=== PATIENT | male | born 1950 | race African-American/Black ===

== ENCOUNTER 2024-12-25 17:20 | Emergency (ER) | payer OTHER ==
[~2024-12-25] VITALS: Ht 185.4 cm; Wt 83.5 kg
[2024-12-25] MEDS ORDERED: LOVENOX80 MG/0.8 SUBCUTANEO (17:40)
[2024-12-25] MEDS ORDERED: PEPCID AC10 MG (17:41)
[2024-12-25] MEDS ORDERED: KETOROLAC TROMETHAMINE 30 MG VIAL ONE (18:43)
[2024-12-25] MEDS ORDERED: 0.9 % SODIUM CHLORIDE 1,000 ML IV ONE (18:45)
[2024-12-25] MEDS ORDERED: KETOROLAC TROMETHAMINE 30 MG VIAL IV ONE (18:45)
[2024-12-25 19:25] LABS: BASO % 0.3 % (0.1-1.2); EOS # 0.02 (0.04-0.54); EOS % 0.3 % (0.7-7.0); LYMPH # 0.94 (1.18-3.74); LYMPH % 15.0 % (19.3-53.1); MEAN PLATELET VOLUME 9.30 fl (9.4-12.4); MONO # 0.18 (0.24-0.82); MONO % 2.9 % (4.7-12.5); NEUT # 5.10 (1.56-6.13); NEUT % 81.2 % (34.0-71.1); RED CELL DISTRIBUTION WIDTH 20.9 % (11.6-14.4)
[2024-12-25 19:50] LABS: INR 1.03
[2024-12-25 19:55] LABS: ALT/SGPT 26.0 U/L (12-78); AST/SGOT 35.0 U/L (15-37); BILIRUBIN TOTAL 0.14 mg/dL (0.3-1.2); BUN CREA RATIO 7.0 (7.0-25.0); CREATININE SERUM 1.14 mg/dL (0.70-1.30); GFR 62.62; GLOBULINA 3.7 G/DL (2.4-3.5); GLUCOSE FASTING 138.0 mg/dL (65-100); OSMOLALITY SERUM 284.0 MOSM/KG (275-295)
[2024-12-25 20:06] LABS: URINE APPEARANCE Clear; URINE BILIRRUBIN Negative (NEGATIVE); URINE BLOOD Negative; URINE COLOR Yellow; URINE GLUCOSE Negative (NEGATIVE); URINE KETONE Negative (NEGATIVE); URINE LEUKOCYTE Negative; URINE NITRATE Negative; URINE PROTEIN Negative (NEGATIVE); URINE UROBILINOGEN 1.0 E.U./dl
[2024-12-25 20:10] LABS: URINE BACTERIA 4.7 uL (0.0-1933); URINE WBC 1.8 uL (0.0-23.2)
[2024-12-25 20:19] LABS: URINE CAST 0.00 uL (0.0-1.40); URINE EPITHELIAL CELLS 1.2 uL (0.0-38.8); URINE RBC 1.0 uL (0.0-20.8)
[2024-12-25] MEDS ORDERED: PEPCID AC20 MG PO (21:49)
[2024-12-25] MEDS ORDERED: BACTRIM DS TAB1 EACH PO (21:49)
[2024-12-25] MEDS ORDERED: TAMS0.4C PO (21:49)
[2024-12-26] MEDS ORDERED: KETOROLAC TROMETHAMINE 30 MG VIAL IV SCH (09:00)
== END 2024-12-26 03:04 | disposition home or self-care (01) ==
LOC: ER 17:20
PROVIDERS: General Practice
DX: N30.90 Cystitis, unspecified without hematuria (principal); R10.9 Unspecified abdominal pain
CPT/HCPCS: 36415; 74176; 96365; 96366; 99284; J1885 ×2; J7030